=== PATIENT | male | born 1970 | race Caucasian/White ===

== ENCOUNTER 2021-06-12 23:07 | Inpatient (IN) | payer MEDICAID ==
[~2021-06-12] VITALS: Ht 172.7 cm; Wt 74.8 kg
[2021-06-12] MEDS ORDERED: MORPHINE SULFATE 4 MG/ML CPJ (NOT FOR IM USE) IV STA (23:45)
[2021-06-12] MEDS ORDERED: PANTOPRAZOLE SODIUM 40 MG/VIAL IV STA (23:45)
[2021-06-12] MEDS ORDERED: OCTREOTIDE ACETATE 50 MCG/ML 1ML IV ONE (23:45)
[2021-06-12] MEDS ORDERED: ONDANSETRON HCL 4MG/2ML INJ IV STA (23:45)
[2021-06-13] MEDS ORDERED: CEFTRIAXONE 1 G PREMIX 50 ML IV ONE
[2021-06-13 00:05] LABS: CHLORIDE 98 mEq/L (98-107); INR 1.3; PROTHROMBIN TIME 13.3 sec (9.6-11.0)
[2021-06-13 00:08] LABS: ETHANOL BLOOD 13 mg/dL
[2021-06-13 00:21] LABS: HEMATOCRIT. 21.4 % (42.0-52.0); MEAN CORPUSCULAR VOLUME 82.9 fL (80.0-94.0); MEAN PLATELET VOLUME 9.5 fl (7.4-10.4); RED BLOOD CELL COUNT 2.58 mill/uL (4.7-6.1); RED CELL DISTRIBUTION WIDTH 21.5 % (11.6-14.6)
[2021-06-13 00:24] LABS: HEMOGLOBIN. 6.9 g/dL (14.0-18.0)
[2021-06-13 00:25] LABS: PLATELET 46 x1000/uL (130-400)
[2021-06-13 05:11] LABS: PLATELET ESTIMATE DECREASED
[2021-06-13 06:20] LABS: INR 1.3; PROTHROMBIN TIME 13.4 sec (9.6-11.0)
[2021-06-13] MEDS ORDERED: PANTOPRAZOLE SODIUM 40 MG/VIAL IV SCH (09:00)
[2021-06-13] MEDS ORDERED: ONDANSETRON HCL 4MG/2ML INJ IV PRN (09:00)
[2021-06-13] MEDS ORDERED: IPRATROPIUM/ALBUTEROL 0.5-3(2.5)MG/3ML NEB HHN PRN (09:00)
[2021-06-13] MEDS ORDERED: DIPHENHYDRAMINE 50MG/ML VIAL IV PRN (09:00)
[2021-06-13 11:00] VITALS: BP 123/71
[2021-06-13] MEDS: DEXT 5%/0.9% NACL 1,000 ML IV SCH ×2 (11:27→22:05)
[2021-06-13 12:00] VITALS: BP 123/80
[2021-06-13 12:05] LABS: HEMATOCRIT 24.5 % (42.0-52.0); HEMOGLOBIN 8.1 g/dL (14.0-18.0)
[2021-06-13] MEDS: OCTREOTIDE 1,000 MCG in SODIUM CHLORIDE 0.9% 98 ML IV SCH (13:00)
[2021-06-13 14:00] VITALS: BP 123/84
[2021-06-13 16:00] VITALS: BP 127/75
[2021-06-13] MEDS ORDERED: INFLUENZA VACCINE 05/PF 0.5 ML SYRINGE IM ONE (16:45)
[2021-06-13] MEDS ORDERED: PNEUMOCOCCAL 23-VAL P-SAC VAC 0.5 ML IM ONE (16:45)
[2021-06-13] MEDS: MULTIVITAMINS,THER W-MINERALS TABLET PO SCH (17:04)
[2021-06-13] MEDS: PANTOPRAZOLE SODIUM 40 MG/VIAL IV SCH (17:05)
[2021-06-13] MEDS: FOLIC ACID 1 MG, THIAMINE HCL 100 MG in DEXTROSE 5% WATER 1,000 ML IV SCH (17:08)
[2021-06-13 18:00] VITALS: BP 125/75
[2021-06-13 19:04] LABS: HEMATOCRIT 22.8 % (42.0-52.0); HEMOGLOBIN 7.6 g/dL (14.0-18.0)
[2021-06-13 20:00] VITALS: BP 120/77
[2021-06-13] MEDS ORDERED: DEXTROSE 50% WATER 50ML SYRINGE IV PRN (22:30)
[2021-06-13] MEDS: INSULIN LISPRO 100 UNITS/ML SUBCUT SCH (23:11)
[2021-06-13] MEDS: BLOOD SUGAR DIAGNOSTIC STRIP TEST SCH (23:11)
[2021-06-14] VITALS (20 sets, daily range): BP systolic 94–148; BP diastolic 54–77
[2021-06-14 00:36] LABS: HEMATOCRIT 21.4 % (42.0-52.0); HEMOGLOBIN 7.3 g/dL (14.0-18.0)
[2021-06-14 05:45] LABS: INR 1.2
[2021-06-14 05:55] LABS: CHLORIDE 101 mEq/L (98-107)
[2021-06-14 06:04] LABS: PHOSPHORUS 3.1 mg/dL (2.5-4.9)
[2021-06-14 06:05] LABS: LDL CHOLESTEROL 98 mg/dL (5-100)
[2021-06-14 06:07] LABS: HDL CHOLESTEROL 39 mg/dL (40-59)
[2021-06-14 06:08] LABS: TOTAL IRON BINDING CAPACITY 310 ug/dL (250-450)
[2021-06-14 06:10] LABS: FERRITIN 17 ng/mL (22-322)
[2021-06-14 06:22] LABS: HEPATITIS B SURFACE ANTIGEN NEGATIVE
[2021-06-14] MEDS: OCTREOTIDE 1,000 MCG in SODIUM CHLORIDE 0.9% 98 ML IV SCH (06:25)
[2021-06-14 06:27] LABS: VITAMIN B12 SERUM 903 pg/mL (211-911)
[2021-06-14] MEDS: BLOOD SUGAR DIAGNOSTIC STRIP TEST SCH ×4 (07:30→20:44)
[2021-06-14] MEDS: INSULIN LISPRO 100 UNITS/ML SUBCUT SCH ×4 (08:00→20:44)
[2021-06-14] MEDS: MULTIVITAMINS,THER W-MINERALS TABLET PO SCH (09:00)
[2021-06-14 09:14] LABS: BASOPHILS % 0.8 % (0.0-2.0); EOSINOPHILS % 3.6 % (0.0-5.0); HEMATOCRIT. 24.8 % (42.0-52.0); HEMOGLOBIN. 8.1 g/dL (14.0-18.0); MEAN CORPUSCULAR HEMOGLOBIN 27.9 pg (28.0-32.0); MEAN PLATELET VOLUME 8.9 fl (7.4-10.4); MONOCYTES % 10.9 % (2.0-8.0); NEUTROPHILS % 62.7 % (40.0-76.0); PLATELET 85 x1000/uL (130-400); RED BLOOD CELL COUNT 2.92 mill/uL (4.7-6.1); RED CELL DISTRIBUTION WIDTH 19.7 % (11.6-14.6)
[2021-06-14] MEDS: PANTOPRAZOLE SODIUM 40 MG/VIAL IV SCH ×2 (09:52→18:08)
[2021-06-14] MEDS ORDERED: POTASSIUM CHLORIDE INJ 40 MEQ in DEXT 5% WATER 250 ML IV NR (10:30)
[2021-06-14] MEDS: FOLIC ACID 1 MG, THIAMINE HCL 100 MG in DEXTROSE 5% WATER 1,000 ML IV SCH (13:05)
[2021-06-14] MEDS: DEXT 5%/0.9% NACL 1,000 ML IV SCH (13:06)
[2021-06-14] MEDS ORDERED: VERAPAMIL HCL 2.5 MG/1 ML 2ML VIAL IV ONE (15:46)
[2021-06-14] MEDS ORDERED: MIDAZOLAM HCL 2 MG/2 ML VIAL ONE (15:47)
[2021-06-14] MEDS ORDERED: PROPOFOL 200MG/20ML VIAL IV ONE ×2 (15:48→16:09)
[2021-06-14] MEDS ORDERED: LIDOCAINE HCL/PF 1% 10 MG/ML 5ML VIAL ONE (15:49)
[2021-06-14] MEDS ORDERED: MORPHINE SULFATE 2 MG/ML CPJ (NOT FOR IM USE) IV PRN (19:15)
[2021-06-15] VITALS (14 sets, daily range): BP systolic 109–171; BP diastolic 62–89
[2021-06-15] MEDS: OCTREOTIDE 1,000 MCG in SODIUM CHLORIDE 0.9% 98 ML IV SCH (04:49)
[2021-06-15] MEDS: DEXT 5%/0.9% NACL 1,000 ML IV SCH ×2 (04:50→14:21)
[2021-06-15 05:32] LABS: BASOPHILS % 0.7 % (0.0-2.0); EOSINOPHILS % 6.4 % (0.0-5.0); HEMATOCRIT. 24.7 % (42.0-52.0); HEMOGLOBIN. 8.2 g/dL (14.0-18.0); LYMPHOCYTES % 22.3 % (20.0-50.0); MEAN CORPUSCULAR HEMOGLOBIN 28.1 pg (28.0-32.0); MEAN CORPUSCULAR VOLUME 84.8 fL (80.0-94.0); MEAN PLATELET VOLUME 8.9 fl (7.4-10.4); MONOCYTES % 11.8 % (2.0-8.0); NEUTROPHILS % 58.8 % (40.0-76.0); PLATELET 77 x1000/uL (130-400); RED BLOOD CELL COUNT 2.91 mill/uL (4.7-6.1); RED CELL DISTRIBUTION WIDTH 19.5 % (11.6-14.6)
[2021-06-15 06:16] LABS: CHLORIDE 101 mEq/L (98-107)
[2021-06-15] MEDS: BLOOD SUGAR DIAGNOSTIC STRIP TEST SCH ×4 (07:30→21:39)
[2021-06-15] MEDS: MULTIVITAMINS,THER W-MINERALS TABLET PO SCH (09:15)
[2021-06-15] MEDS: PANTOPRAZOLE SODIUM 40 MG/VIAL IV SCH ×2 (09:15→18:23)
[2021-06-15] MEDS: INSULIN LISPRO 100 UNITS/ML SUBCUT SCH ×4 (09:16→21:00)
[2021-06-15] MEDS ORDERED: KCL 20MEQ/100ML PREMIX 100 ML IV SCH (10:00)
[2021-06-15] MEDS ORDERED: FOLI-43 MT (10:35)
[2021-06-15] MEDS ORDERED: PANT40TA51 MT (10:35)
[2021-06-15] MEDS ORDERED: SUCR1TAB30 MT (10:35)
[2021-06-15] MEDS ORDERED: THIA100T88 MT (10:35)
[2021-06-15] MEDS ORDERED: MULT-379 MT (10:35)
[2021-06-15] MEDS: FOLIC ACID 1 MG, THIAMINE HCL 100 MG in DEXTROSE 5% WATER 1,000 ML IV SCH (13:54)
[2021-06-15] MEDS ORDERED: DIATR MEGLU/DIATRIZOATE SOLN 30ML PO NR (15:15)
[2021-06-15] MEDS ORDERED: NALOXONE HCL 0.4MG/ML VIAL IV PRN (20:15)
[2021-06-15] MEDS ORDERED: IOHEXOL-300 100 ML BOTTLE ONE (21:34)
[2021-06-16] VITALS: BP 160/74
[2021-06-16] MEDS: DEXT 5%/0.9% NACL 1,000 ML IV SCH (00:37)
[2021-06-16 02:00] VITALS: BP 138/89
[2021-06-16 04:00] VITALS: BP 147/79
[2021-06-16] MEDS: BLOOD SUGAR DIAGNOSTIC STRIP TEST SCH (07:30)
[2021-06-16] MEDS: INSULIN LISPRO 100 UNITS/ML SUBCUT SCH (07:54)
== END 2021-06-16 09:08 | disposition left against medical advice (07) ==
LOC: ER 23:07 → EDBD 06-13 02:10 → MICUSO 06-13 02:10 → 5EST 06-13 10:47
PROVIDERS: ADMIT Internal Medicine; ATTEND Internal Medicine
PROC: 30233K1 Transfusion of Nonautologous Frozen Plasma into Peripheral Vein, Percutaneous Approach (ICD-10-PCS; 2021-06-13)
PROC: 30233N1 Transfusion of Nonautologous Red Blood Cells into Peripheral Vein, Percutaneous Approach (ICD-10-PCS; 2021-06-14)
PROC: 30233R1 Transfusion of Nonautologous Platelets into Peripheral Vein, Percutaneous Approach (ICD-10-PCS; 2021-06-14)
PROC: 06L38CZ Occlusion of Esophageal Vein with Extraluminal Device, Via Natural or Artificial Opening Endoscopic (ICD-10-PCS; principal; 2021-06-16)
PROC: 0DB78ZX Excision of Stomach, Pylorus, Via Natural or Artificial Opening Endoscopic, Diagnostic (ICD-10-PCS; 2021-06-16)
DX: K74.60 Unspecified cirrhosis of liver (principal); I85.11 Secondary esophageal varices with bleeding; E88.09 Other disorders of plasma-protein metabolism, not elsewhere classified; D63.8 Anemia in other chronic diseases classified elsewhere; D62 Acute posthemorrhagic anemia; D69.59 Other secondary thrombocytopenia; E11.65 Type 2 diabetes mellitus with hyperglycemia; E87.6 Hypokalemia; Z20.822 Contact with and (suspected) exposure to COVID-19; K25.9 Gastric ulcer, unspecified as acute or chronic, without hemorrhage or perforation; F10.20 Alcohol dependence, uncomplicated; K29.60 Other gastritis without bleeding; K31.89 Other diseases of stomach and duodenum; Y90.0 Blood alcohol level of less than 20 mg/100 ml; K82.8 Other specified diseases of gallbladder; Z53.29 Procedure and treatment not carried out because of patient's decision for other reasons; Z71.41 Alcohol abuse counseling and surveillance of alcoholic
CPT/HCPCS: 36415; 71045; 74018; 74177; 76700; 80048; 80053; 80061; 80320; 82248; 82607; 82728; 82746; 82962; 83036; 83540; 83550; 83605; 83735; 84100; 84443; 85014; 85018; 85025; 85049; 86705; 86709; 86803; 86850; 86900; 86920; 86927; 87340; 87426; 88305; 88312; 88313; 90686; 90732; 93005; 93970; 99291; C9113; J0696; J1815; J2250; J2270; J2354; J2405; J2704; J3411; J3480; J3490; J7042; J7050; J7060; J7070; P9016; P9017; P9034; Q9963; Q9967; G0480